=== PATIENT | male | born 1955 | race African-American/Black ===

== ENCOUNTER 2017-10-14 18:25 | Emergency (ER) | payer OTHER ==
[~2017-10-14] VITALS: Ht 182.9 cm; Wt 86.0 kg
[2017-10-14 18:34] VITALS: BP 140/94; PULSE 118; RESP 18; TEMP 97.9; O2SAT 99
[2017-10-14] MEDS ORDERED: SODIUM CHLOR 0.9% 1000 ML INJ 1,000 ML IV SCH (18:41)
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
[2017-10-14] MEDS ORDERED: SODIUM CHLORIDE 0.9% FLUSH 10 ML FLUSH IVF PRN (18:45)
[2017-10-14] MEDS ORDERED: METF500T PO (18:46)
[2017-10-14 18:50] VITALS: RESP 18; O2SAT 97
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
[2017-10-14 19:27] LABS: AUTOMATED NEUTROPHIL # 4.5 TH/MM3 (1.8-7.7); BASOPHIL % 0.4 % (0.0-2.0); EOSINOPHIL # 0.1 TH/MM3 (0-0.4); EOSINOPHIL % 2.2 % (0.0-4.0); HEMATOCRIT 40.8 % (39.0-51.0); HEMOGLOBIN 13.9 GM/DL (13.0-17.0); LYMPH % 18.4 % (9.0-44.0); LYMPHOCYTE # 1.2 TH/MM3 (1.0-4.8); MEAN CELL VOLUME 88.3 FL (80.0-100.0); MEAN CORPUSCULAR HEMOGLOBIN 30.1 PG (27.0-34.0); MEAN CORPUSCULAR HGB CONC 34.1 % (32.0-36.0); MEAN PLATELET VOLUME 8.5 FL (7.0-11.0); MONO % 8.9 % (0.0-8.0); MONOCYTE # 0.6 TH/MM3 (0-0.9); NEUT % 70.1 % (16.0-70.0); PLATELET COUNT 226 TH/MM3 (150-450); RED BLOOD COUNT 4.62 MIL/MM3 (4.50-5.90); RED CELL DISTRIBUTION WIDTH 13.5 % (11.6-17.2); WHITE BLOOD COUNT 6.4 TH/MM3 (4.0-11.0)
[2017-10-14 19:29] VITALS: BP 160/91; PULSE 115; RESP 16; O2SAT 94
[2017-10-14 19:36] LABS: PROTHROMBIN TIME - PATIENT 10.3 SEC (9.8-11.6)
[2017-10-14 19:41] LABS: BICARBONATE 28.5 MEQ/L (21.0-32.0); CALCIUM 9.4 MG/DL (8.5-10.1); CREATININE 1.38 MG/DL (0.60-1.30)
[2017-10-14] MEDS ORDERED: IOHEXOL 350 MG/ML 10 ML VIAL (for RAD DIAG) IVCONTRAST ONE (20:09)
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
[2017-10-14] MEDS ORDERED: ACETAMINOPHEN/HYDROcodone 325 MG/5 MG TAB PO ONE (20:30)
[2017-10-14] MEDS ORDERED: IBUP-232 PO (20:31)
[2017-10-14] MEDS ORDERED: NORC5TAB PO (20:31)
--- NOTE | 2017-10-15 12:27 | EKG ---
Date Performed: 10/14/2017 Time Performed: 18:36:40 PTAGE: 62 years EKG: SINUS TACHYCARDIA BORDERLINE LEFT AXIS DEVIATION MINIMAL VOLTAGE CRITERIA FOR LVH, CONSIDER NORMAL VARIANT ABNORMAL RHYTHM ECG NO PREVIOUS TRACING 10/14/2017 1836 DOCTOR: Adan Ashley Interpretating Date/Time 10/15/2017 12:26:30
== END 2017-10-14 20:50 | disposition home or self-care (01) ==
LOC: NEPE 18:25
DX: S22.42XA Multiple fractures of ribs, left side, initial encounter for closed fracture (principal); V49.9XXA Car occupant (driver) (passenger) injured in unspecified traffic accident, initial encounter; Y92.411 Interstate highway as the place of occurrence of the external cause; R94.31 Abnormal electrocardiogram [ECG] [EKG]; E11.9 Type 2 diabetes mellitus without complications; I10 Essential (primary) hypertension; I25.10 Atherosclerotic heart disease of native coronary artery without angina pectoris
CPT/HCPCS: 71045; 74177; 80048; 85025; 85610; 85730; 93005; 96360; 96361; 99285; J7030; Q9967

== ENCOUNTER 2017-10-14 21:12 | Inpatient (IN) | payer SELFPAY ==
[2017-10-12] MEDS: SODIUM CHLOR 0.9% 1000 ML INJ 1,000 ML IV SCH (22:50)
[~2017-10-14] VITALS: Ht 182.9 cm; Wt 86.0 kg
[~2017-10-14 21:12] MED LIST: IBUP-232 PO; METF500T PO; NORC5TAB PO
[2017-10-14 21:15] VITALS: BP 110/67; PULSE 83; RESP 18; O2SAT 97
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
[2017-10-14] MEDS ORDERED: SODIUM CHLOR 0.9% 1000 ML INJ 1,000 ML IV ONE (21:30)
[2017-10-14 21:56] LABS: HEMOGLOBIN 13.9 GM/DL (13.0-17.0)
[2017-10-14 22:16] LABS: TROPONIN I LESS THAN 0.02 NG/ML (0.02-0.05)
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
[2017-10-14] MEDS ORDERED: SODIUM CHLORIDE 0.9% FLUSH 10 ML FLUSH IV FLUSH PRN (23:00)
[2017-10-14] MEDS ORDERED: GLUCAGON 1 MG/ML VIAL OTHER PRN (23:00)
[2017-10-14] MEDS ORDERED: ACETAMINOPHEN 325 MG TAB PO PRN (23:00)
[2017-10-14] MEDS ORDERED: ACETAMINOPHEN/HYDROcodone 325 MG/5 MG TAB PO PRN (23:00)
[2017-10-14] MEDS ORDERED: ONDANSETRON HCL 4 MG/2 ML VIAL IVP PRN (23:00)
[2017-10-14] MEDS ORDERED: DEXTROSE 50% IN WATER 50 ML VIAL(D50) IV PUSH PRN (23:00)
[2017-10-14] MEDS ORDERED: BISACODYL 10 MG SUPP RECTAL PRN (23:00)
[2017-10-14] MEDS ORDERED: LACTULOSE SYRUP 20 GM/30 ML CUP PO PRN (23:00)
[2017-10-14] MEDS ORDERED: MAGNESIUM HYDROXIDE SUSP 30 ML CUP PO PRN (23:00)
[2017-10-14] MEDS ORDERED: SENNOSIDES 8.6 MG TAB PO PRN (23:00)
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
[2017-10-14] MEDS ORDERED: LIDOCAINE HCL 5% PATCH T-DERMAL PRN (23:15)
[2017-10-15] VITALS (8 sets, daily range): BP systolic 82–171; BP diastolic 64–95; PULSE 86–113; RESP 18–20; TEMP 97.3–98.4; O2SAT 90–95
[2017-10-15 00:09] LABS: BILIRUBIN, URINE NEG (NEG); BLOOD, URINE MOD (NEG); GLUCOSE,URINE 300 mg/dL (NEG); HYALINE CAST, URINE 1 /lpf (RARE); KETONE, URINE NEG (NEG); NITRITE,URINE NEG (NEG); PH, URINE 7.5 (5.0-8.5); URINE COLOR LIGHT-YELLOW (YELLW/STRAW); URINE LEUKOCYTE ESTERASE NEG (NEG)
[2017-10-15] MEDS: ACETAMINOPHEN/HYDROcodone 325 MG/10 MG TAB PO PRN ×2 (00:15→12:31)
[2017-10-15 05:31] LABS: TROPONIN I LESS THAN 0.02 NG/ML (0.02-0.05)
[2017-10-15] MEDS: INSULIN ASPART SUPPLEMENTAL SCALE SQ SCH ×4 (08:00→21:00)
[2017-10-15] MEDS: SODIUM CHLORIDE 0.9% FLUSH 10 ML FLUSH IV FLUSH SCH ×2 (09:00→21:00)
[2017-10-15] MEDS: DOCUSATE SODIUM 50 MG/SENNA 8.6 MG TAB PO SCH ×2 (09:51→21:17)
[2017-10-15] MEDS: SODIUM CHLOR 0.9% 1000 ML INJ 1,000 ML IV SCH (09:52)
[2017-10-15 11:39] LABS: AUTOMATED NEUTROPHIL # 5.4 TH/MM3 (1.8-7.7); BASOPHIL % 0.5 % (0.0-2.0); EOSINOPHIL # 0.1 TH/MM3 (0-0.4); HEMATOCRIT 39.1 % (39.0-51.0); HEMOGLOBIN 13.5 GM/DL (13.0-17.0); LYMPH % 15.5 % (9.0-44.0); LYMPHOCYTE # 1.1 TH/MM3 (1.0-4.8); MEAN CELL VOLUME 89.2 FL (80.0-100.0); MEAN CORPUSCULAR HEMOGLOBIN 30.8 PG (27.0-34.0); MEAN CORPUSCULAR HGB CONC 34.6 % (32.0-36.0); MEAN PLATELET VOLUME 8.5 FL (7.0-11.0); MONO % 8.7 % (0.0-8.0); MONOCYTE # 0.6 TH/MM3 (0-0.9); NEUT % 74.3 % (16.0-70.0); PLATELET COUNT 213 TH/MM3 (150-450); RED BLOOD COUNT 4.38 MIL/MM3 (4.50-5.90); RED CELL DISTRIBUTION WIDTH 13.7 % (11.6-17.2); WHITE BLOOD COUNT 7.2 TH/MM3 (4.0-11.0)
[2017-10-15 12:16] LABS: ALBUMIN 4.1 GM/DL (3.4-5.0); ALKALINE PHOSPHATASE 87 U/L (45-117); ALT (GPT) 35 U/L (12-78); AST (GOT) 34 U/L (15-37); BICARBONATE 26.6 MEQ/L (21.0-32.0); BLOOD UREA NITROGEN 14 MG/DL (7-18); CALCIUM 8.6 MG/DL (8.5-10.1); CHLORIDE 103 MEQ/L (98-107); CREATININE 1.01 MG/DL (0.60-1.30); GLOMERULAR FILTRATION RATE 90 ML/MIN (>89); GLUCOSE,RANDOM 151 MG/DL (74-106); SODIUM (NA) 137 MEQ/L (136-145); TOTAL BILIRUBIN ADULT 0.5 MG/DL (0.2-1.0); TOTAL PROTEIN 8.2 GM/DL (6.4-8.2); TROPONIN I LESS THAN 0.02 NG/ML (0.02-0.05)
--- NOTE | 2017-10-15 12:22 | EKG ---
Date Performed: 10/14/2017 Time Performed: 21:21:56 PTAGE: 62 years EKG: Sinus rhythm NONSPECIFIC T-WAVE ABNORMALITY BORDERLINE ECG PREVIOUS TRACING : 10/14/2017 18.36 Since the prior tracing, there has been no significant hassan DOCTOR: Adan Ashley Interpretating Date/Time 10/15/2017 12:20:53
[2017-10-15] MEDS: NS + KCL 20 MEQ INJ 1,000 ML IV SCH ×2 (12:56→21:17)
--- NOTE | 2017-10-15 15:32 | ECHRPT ---
Indication: heart failure CONCLUSIONS The left ventricular systolic function is hyperdynamic with an estimated ejection fraction in the ra nge of 65- 70%. Trace aortic valve regurgitation. There is trace tricuspid valve regurgitation. BP: 149 / 83 HR: 87 Rhythm: Sinus MEASUREMENTS (Male / Female) Normal Values Technical Quality:Good 2D ECHO LV Diastolic Diameter PLAX 4.8 cm 4.2 - 5.9 / 3.9 - 5.3 cm LV Systolic Diameter PLAX 3.0 cm IVS Diastolic Thickness 1.1 cm 0.6 - 1.0 / 0.6 - 0.9 cm LVPW Diastolic Thickness 1.1 cm 0.6 - 1.0 / 0.6 - 0.9 cm LV Relative Wall Thickness 0.5 RV Internal Dim ED PLAX 2.2 cm LVOT Diameter 1.9 cm LA Systolic Diameter LX 3.7 cm 3.0 - 4.0 / 2.7 - 3.8 cm M-MODE Aortic Root Diameter MM 2.7 cm LA Systolic Diameter MM 3.7 cm LA Ao Ratio MM 1.4 AV Cusp Separation MM 2.2 cm DOPPLER AV Peak Velocity 132.0 cm/s AV Peak Gradient 7.0 mmHg MV Area PHT 4.0 cm Mitral E Point Velocity 56.8 cm/s Mitral A Point Velocity 63.7 cm/s Mitral E to A Ratio 0.9 LV E' Lateral Velocity 5.1 cm/s Mitral E to LV E' Lateral Ratio 11.2 LV E' Septal Velocity 5.2 cm/s Mitral E to LV E' Septal Ratio 11.0 TR Peak Velocity 233.0 cm/s TR Peak Gradient 21.7 mmHg Right Atrial Pressure 10.0 mmHg Pulmonary Artery Systolic Pressu 31.7 mmHg Right Ventricular Systolic Press 31.7 mmHg PV Peak Velocity 105.0 cm/s PV Peak Gradient 4.4 mmHg FINDINGS LEFT VENTRICLE The left ventricular systolic function is hyperdynamic with an estimated ejection fraction in the ra nge of 65- 70%. Normal left ventricular size. Wall thickness is normal. No regional wall motion abnormalities are present. RIGHT VENTRICLE Normal right ventricular size and systolic function. LEFT ATRIUM The left atrial size is upper limits of normal. RIGHT ATRIUM The right atrial size is normal. ATRIAL SEPTUM Normal atrial septal thickness without atrial level shunting by limited color doppler interrogation. AORTA The aortic root and proximal ascending aorta are normal in size on limited imaging. MITRAL VALVE Structurally normal mitral valve. No mitral valve stenosis or regurgitation. AORTIC VALVE Trileaflet aortic valve. Trace aortic valve regurgitation. TRICUSPID VALVE Structurally normal tricuspid valve. There is trace tricuspid valve regurgitation. The estimated pulmonary arterial pressure is 31.7 mmHg. PULMONARY VALVE No pulmonary valve regurgitation or stenosis. VESSELS The inferior vena cava was not well visualized. PERICARDIUM No pericardial effusion. Teofilo Paez DO (Electronically Signed) Final Date:15 October 2017 15:31
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
[2017-10-15] MEDS ORDERED: REMOVE OLD PATCH T-DERMAL SCH (21:00)
[2017-10-16 00:12] VITALS: BP 147/95; PULSE 92; RESP 16; TEMP 98.6; O2SAT 97
[2017-10-16 01:30] VITALS: BP 163/91; PULSE 103; RESP 16; TEMP 96.1; O2SAT 96
[2017-10-16 04:00] VITALS: BP 152/94; PULSE 95; RESP 15; TEMP 96.4; O2SAT 96
[2017-10-16 07:30] LABS: BICARBONATE 27.2 MEQ/L (21.0-32.0); CALCIUM 9.2 MG/DL (8.5-10.1); CREATININE 1.02 MG/DL (0.60-1.30)
[2017-10-16 08:00] VITALS: BP 158/89; PULSE 17; PULSE 97; RESP 17; TEMP 97.8; O2SAT 98
[2017-10-16 12:00] VITALS: BP 159/98; PULSE 101; PULSE 111; RESP 19; TEMP 96.5; O2SAT 98
[2017-10-16] MEDS ORDERED: NORC5TAB PO (12:29)
[2017-10-16] MEDS ORDERED: LIDO1ADH4 T-DERMAL (12:29)
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
[2017-10-16 16:00] VITALS: BP 147/98; PULSE 100; RESP 18; TEMP 97.4; O2SAT 95
== END 2017-10-16 17:57 | disposition home or self-care (01) | DRG 312 ==
LOC: NEPE 21:12 → NEDA 22:51 → OBSVTOIN 22:51 → INTOOBSV 22:51 → NEPHCDU 23:50 → OBSVTOIN 10-15 16:04 → N06A 10-16 01:00
PROVIDERS: ADMIT Family Medicine; ATTEND Family Medicine
DX: R55 Syncope and collapse (principal); M62.82 Rhabdomyolysis; N28.9 Disorder of kidney and ureter, unspecified; E86.0 Dehydration; E11.9 Type 2 diabetes mellitus without complications; Z79.84 Long term (current) use of oral hypoglycemic drugs; S22.42XD Multiple fractures of ribs, left side, subsequent encounter for fracture with routine healing
CPT/HCPCS: 70450; 80048; 80053; 81001; 82550; 82552; 82948; 84484; 85014; 85018; 85025; 93005; 93306; 94150; 96360; 96361; G0378; G8987-GP; G8988-GP; G8989-GP; J3480; J7030